=== PATIENT | male | born 1945 | race Caucasian/White ===

== ENCOUNTER 2021-01-12 06:34 | Day surgery (SDC) | payer OTHER, SELFPAY ==
[2020-12-29 11:49] VITALS: BMI 26.0
[2021-01-12] VITALS (7 sets, daily range): BP systolic 83–159; BP diastolic 37–82; PULSE 48–57; RESP 14–16; TEMP 36.1–36.8; O2SAT 94–99; BMI 25.3
--- NOTE | 2021-01-12 06:51 | HP.PCM_ITS ---
Problem List (1) Personal history of colonic polyps Status: Acute History and Physical Date of Admission: 01/12/21 Intake Visit Reasons: CSCOPE Chief Complaint: history of colon polyps Group Exercise Class Instructor Required: No Is patient in pain?: No Allergies adhesive tape Allergy (Mild, Verified 12/29/20 11:51) rash Sulfa (Sulfonamide Antibiotics) Adverse Reaction (Mild, Verified 12/29/20 11:51) tremors Medications aspirin 81 mg tablet,delayed release 81 mg PO DAILY 12/29/20 [History Confirmed 12/29/20] clopidogrel 75 mg tablet 75 mg PO .qod tab 12/29/20 [History Confirmed 12/29/20] isosorbide mononitrate 120 mg tablet,extended release 24 hr 120 mg PO DAILY 12/29/20 [History Confirmed 12/29/20] metoprolol tartrate 25 mg tablet 25 mg PO BID 12/29/20 [History Confirmed 12/29/20] valsartan 40 mg tablet 20 mg PO BID tab 12/29/20 [History Confirmed 12/29/20] [facility] Medical History (Updated 12/29/20 @ 12:[address] Derrick Tijerina MD) Personal history of colonic polyps (Acute) Osteoarthritis (Acute) Back pain (Acute) Gout (Acute) HTN (hypertension) (Chronic) Myocardial infarction (Acute) CAD (coronary artery disease) (Acute) Lupus (systemic lupus erythematosus) (Acute) Sleep apnea (Acute) GERD (gastroesophageal reflux disease) (Acute) Hemorrhoids (Acute) COPD (chronic obstructive pulmonary disease) (Chronic) Personal history of colonic polyps (Acute) Surgical History (Updated 12/29/20 @ 11:47 by Ramandeep Escobedo) History of colonoscopy (Acute ~2017) History of excision of mass (Acute) History of heart bypass surgery (Acute) History of laparoscopic cholecystectomy (Acute) History of lumbar fusion (Acute) Family History (Updated 12/29/20 @ 11:49 by Ramandeep Escobedo) Father Heart disease Hypertension Mother CVA (cerebral vascular accident) Social History (Updated 12/29/20 @ 15:[address] Derrick Tijerina MD) Smoking Status: Current every day smoker HPI HPI HPI: MAIK MCFARLAND, is a 75 M who presents to the office today for surgical consultation for colonoscopy because of a personal history of colon polyps. The patient is referred by the [facility] and a written copy my surgical consult recommendations were returned to them. Patient had a complicated history. Sounds like he has previously had his gallbladder removed. He was having abdominal pain. He claims that was not a correct diagnosis and he then had perforated sigmoid diverticulitis. Apparently had a resection but then had problems with a colovesical fistula. He had to have part of his urinary bladder removed and redo surgery and a diverting colostomy. All of that finding was t aken down and reestablish to normal. He has been a long-term cigarette smoker. A chest CT scan by his report is been done looking for nodules. He claims that he is stable. He also has a known infrarenal abdominal aortic aneurysm at 3.8 cm on most recent testing. He has a femoral-femoral crossover graft that is patent and in place. He walks 4 to 6 miles per day in 2 different settings. He currently denies chest pain or shortness of breath no bright red blood per rectum or melena. His most recent colonoscopy was May 28, 2017. Cecal lymphoid aggregate. 2 polyps of the ascending colon tubular adenomas. Transverse colon tubular adenoma. Rectal tubular adenoma. Diverticular disease of the descending colon. HPI HPI HPI: MAIK MCFARLAND, is a 75 M who presents to the office today for ROS General General: No weight change, appetite, fatigue, colon cancer, breast cancer or weakness HEENT HEENT: No difficulty swallowing, eye injury, eye surgery, swollen glands or hoarseness Endo Endocrine: No thyroid disease, diabetes mellitus, thyroid cancer, Hair loss, heat intolerance or cold intolerance Musc Musculoskeletal: Yes back problems, arthritis and gout; no rheumatoid arthritis or joint pain Cardio Cardiovascular: Yes murmur, heart disease, atrial fibrillation, high blood pressure and heart attack Psych Psychiatric: No depression, anxiety or hearing voices Resp Respiratory: Yes shortness of breath, Yes sleep apnea, No cough, Yes COPD, No asthma, No emphysema, No wheezing Gastro Gastrointestinal: No abdominal pain, No nausea or vomiting, No diarrhea, Yes constipation, No blood in stool, Yes acid reflux, Yes hemorrhoids, No ulcers, No gallbladder problem, No black,tarry stools Ken Hematologic: Yes blood thinners, No blood disorders, No bleeding, No anemia, No blood clots Neuro Neurologic: No weakness Exam Const General: cooperative Nutritional Appearance: average body habitus Orientation: alert, awake [facility] Head: normal to inspection Eyes General: appearance normal, both eyes and all related structures Resp Effort & Inspection: normal respiratory effort Auscultation: clear to auscultation bilaterally Cardio Rate: regular rate Rhythm: regular rhythm Heart Sounds: murmur GI Inspection: normal to inspection Palpation: soft Auscultation: normal bowel sounds Musc Cervical Spine: normal cervical lordosis Skin General: no rashes or lesions noted Neuro Cognition: normal cognition Extrem General: no calf tenderness Assessment & Plan Problems 1. Personal history of colonic polyps Z86.010 Plan I recommended the patient a colonoscopy with possible biopsy or polypectomy as indicated. He is aware of the technique, benefit, risk and alternatives. He is aware that he likely will have additional polyps present. He has the aortic aneurysm and femorofemoral crossover graft. He is on aspirin and Plavix for A. fib. He has COPD. With that in mind we will use monitored anesthesia care. Appreciate the opportunity of assisting with surgical care Copy: [facility]. Derrick Tijerina M.D., F.A.C.S. Orders Orders: Colonoscopy Today Coding Level of Care Code 79269 Diagnoses Personal history of colonic polyps Z86.010 I have re-examined the patient. There are no clinical changes since date of exam.
[2021-01-12] MEDS: Lactated Ringers 1,000 ML 100 ML IV (07:31)
--- NOTE | 2021-01-12 08:16 | OP.COLON_ITS ---
Patient Name: Javi De La Cruz Procedure Date: 01/12/2021 7:47 AM Date of : 1945 Age: 75 Procedure: Colonoscopy Indications: High risk colon cancer surveillance: Personal history of colonic polyps Providers: Derrick Tijerina MD Referring MD: Hiram Dean Medicines: See the Anesthesia note for documentation of the administered medications Patient Profile: Last Colonoscopy: date unknown. Complications: No immediate complications. Procedure: Pre-Anesthesia Assessment: - Prior to the procedure, a History and Physical was performed, and patient medications and allergies were reviewed. The patient's tolerance of previous anesthesia was also reviewed. The risks and benefits of the procedure and the sedation options and risks were discussed with the patient. All questions were answered, and informed consent was obtained. Prior Anticoagulants: The patient has taken no previous anticoagulant or antiplatelet agents. ASA Grade Assessment: III - A patient with severe systemic disease. After reviewing the risks and benefits, the patient was deemed in satisfactory condition to undergo the procedure. After I obtained informed consent, the scope was passed under direct vision. Throughout the procedure, the patient's blood pressure, pulse, and oxygen saturations were monitored continuously. The Colonoscope was introduced through the anus and advanced to the cecum, identified by appendiceal orifice and ileocecal valve. The colonoscopy was performed without difficulty. The patient tolerated the procedure well. The quality of the bowel preparation was good. The ileocecal valve and the appendiceal orifice were photographed. Scope In: 8:00:49 AM Scope Withdrawal Time 0 hours 7 minutes 16 seconds Scope Out: 8:10:29 AM Total Procedure Duration Time 0 hours 9 minutes 40 seconds Findings: Hemorrhoids were found on perianal exam. Multiple diverticula were found in the entire colon. The exam was otherwise without abnormality. Impression: - Hemorrhoids found on perianal exam. - Diverticulosis in the entire examined colon. - The examination was otherwise normal. - No specimens collected. Recommendation: - Discharge patient to home. - Resume previous diet. - Continue present medications. - Repeat colonoscopy in 5 years for surveillance. Procedure Code(s): --- Professional --- 38012, Colonoscopy, flexible; diagnostic, including collection of specimen(s) by brushing or washing, when performed (separate procedure) Diagnosis Code(s): --- Professional --- Z86.010, Personal history of colonic polyps K64.9, Unspecified hemorrhoids K57.30, Diverticulosis of large intestine without perforation or abscess without bleeding CPT copyright 2017 [employer]. All rights reserved. The codes documented in this report are preliminary and upon exchange floor manager review may be revised to meet current compliance requirements. Derrick Tijerina MD 01/12/2021 8:15:39 AM This report has been signed electronically. Number of Addenda: 0 Note Initiated On: 01/12/2021 7:47 AM
--- NOTE | 2021-01-12 08:16 | OP.CCLET_ITS ---
01/12/2021 Hiram Dean [address] [place] [address] [place] [address] Re : Colonoscopy procedure for Javi De La Cruz Dear Dr. Dean This procedure was performed on Tuesday, January 12, 2021. My impressions and recommendations are as follows: Impressions : - Hemorrhoids found on perianal exam. - Diverticulosis in the entire examined colon. - The examination was otherwise normal. - No specimens collected. Recommendations : - Discharge patient to home. - Resume previous diet. - Continue present medications. - Repeat colonoscopy in 5 years for surveillance. My findings are described in the full procedure note, which is enclosed. If I can be of further assistance, please feel free to contact me at Doctor phone number(s): Work: . Sincerely, Derrick Tijerina MD 01/12/2021 8:15:39 AM This report has been signed electronically.
== END 2021-01-12 08:55 | disposition home or self-care (01) ==
LOC: EN 06:35 → AC 06:35
PROVIDERS: PCP Family Medicine; Referring Provider Family Medicine; Visit Provider Surgery
PROC: 0DJD8ZZ Inspection of Lower Intestinal Tract, Via Natural or Artificial Opening Endoscopic (ICD-10-PCS; CPT 45378; principal; 2021-01-12 07:55)
DX: Z12.11 Encounter for screening for malignant neoplasm of colon (principal); K64.9 Unspecified hemorrhoids; K57.30 Diverticulosis of large intestine without perforation or abscess without bleeding; Z86.010 Personal history of colon polyps; K21.9 Gastro-esophageal reflux disease without esophagitis; I25.10 Atherosclerotic heart disease of native coronary artery without angina pectoris; I48.91 Unspecified atrial fibrillation; I25.2 Old myocardial infarction; I10 Essential (primary) hypertension; E78.00 Pure hypercholesterolemia, unspecified; J44.9 Chronic obstructive pulmonary disease, unspecified; M32.9 Systemic lupus erythematosus, unspecified; M19.90 Unspecified osteoarthritis, unspecified site; F32.9 Major depressive disorder, single episode, unspecified; F41.9 Anxiety disorder, unspecified; F17.210 Nicotine dependence, cigarettes, uncomplicated; Z95.1 Presence of aortocoronary bypass graft; Z79.82 Long term (current) use of aspirin; Z79.02 Long term (current) use of antithrombotics/antiplatelets; Z79.899 Other long term (current) drug therapy; Z86.73 Personal history of transient ischemic attack (TIA), and cerebral infarction without residual deficits
CPT/HCPCS: 45378; 87426; C9803; J7120; J2405

== ENCOUNTER 2022-03-10 09:25 | Emergency (ER) | payer OTHER, SELFPAY ==
[2022-03-10 09:29] VITALS: BP 114/91; PULSE 71; RESP 20; TEMP 37; O2SAT 97; BMI 20.5
--- NOTE | 2022-03-10 10:22 | CT_ITS ---
STUDY: CT ABDOMEN AND PELVIS WITH CONTRAST REASON FOR EXAM: Male, 76 years old. right sided abd pain -- IV PO Contrast RADIATION DOSAGE (If Supplied By Facility): CTDIvol = ( 8.82 ) mGy, DLP = ( 385.92 ) mGycm TECHNIQUE: Transaxial images were obtained from the dome of the diaphragm to the symphysis pubis without oral contrast. Oral and amp; IV Gastrografin and amp; 100mL Isovue-300 was administered. Sagittal and coronal images were reconstructed. Individualized dose optimization techniques were used for this CT. COMPARISON: None. FINDINGS: Left lower lobe chronic appearing nodule is present measuring 4 to 5 mm. The visualized portions of the heart are within normal limits. Mild intrahepatic ductal dilatation is present. Cholecystectomy clips are present. Normal spleen. Within the head of the pancreas are cystic appearing lesions not definitively connected with the pancreatic duct the largest measuring 2.8 x 1.8 cm. Normal bilateral adrenal glands. There is mild cortical atrophy of the right kidney, consistent with chronic medical renal disease. There is mild cortical atrophy of the left kidney, consistent with chronic medical renal disease. Normal visualized stomach. There is left quadrant dilated small bowel loops of bowel measuring up to 3.3 cm likely consistent with underlying component of ileus given contrast extending to the distal bowel. Within the region of the cecum is inflammatory stranding wall thickening concerning for underlying colitis. The appendix is not clearly visualized on examination. Infrarenal abdominal aortic aneurysm is present measuring 3.5 cm with lack of contrast to the iliac arteries, however bilateral femoral bypass graft is noted and patent. Normal inferior vena cava. Normal retroperitoneum. Normal urinary bladder. Prostate is enlarged abutting the bladder base. Normal abdominal wall. Diffuse demineralization and degenerative changes are present. CT/Abdomen/Pelvis WITH Contrast IMPRESSION: 1. Wall thickening and inflammatory stranding within the region of the cecum concerning for underlying colitis. The appendix is not clearly visualized due to surrounding inflammatory stranding. No evidence of focal abscess. Recommend follow-up imaging after appropriate treatment to document resolution as wall thickening due to neoplastic processes not excluded. 2. Cystic lesions within the head of the pancreas of unclear definitive etiology. Recommend MR pancreatic and MRCP imaging for further assessment characterization. 3. Left quadrant dilated small bowel loops of bowel likely representing underlying ileus with contrast demonstrated distally within the ball small bowel system. 4. Adequate flow within the femoral arterial bypass graft. Electronically Signed: Alli Reyes DO at 12:27 EDT ,
[2022-03-10 10:52] LABS: Absolute Lymphocyte Count 0.66 X10^3/uL (0.83-4.51); Absolute Neutrophil Count 6.7 X10^3/uL (2.0-7.7); Basophil# 0.02 X10^3/uL; Basophil% 0.2 % (0-1); Eosinophil# 0.03 X10^3/uL; Eosinophils% 0.4 % (0-5); Hemoglobin 10.5 g/dL (13.0-16.5); Lymphocyte # 0.66 X10^3/ul (0.83-4.51); Lymphocyte % 7.7 % (19-41); Mean Corp Hgb Conc 33.9 g/dL (32-36); Mean Corpuscular Hgb 33.3 pg (27.0-32.0); Mean Corpuscular Volume 98.4 fL (80-94); Mean Platelet Vol. 10.5 fl (6.2-12.0); Monocyte# 1.03 X10^3/uL; Monocyte% 12.1 % (0-10); NRBC Flagged by Analyzer 0 % (0-5); Neutrophil # 6.73 X10^3/uL (2.7-7.7); Neutrophil % 78.9 % (47-70); Platelet Count 195 K/mm3 (150-450); RBC Distribution Width CV 12.7 % (11.6-14.6); RBC Distribution Width SD 45.8 fl (35.1-43.9); Red Blood Count 3.15 M/mm3 (4.6-6.2); White Blood Count 8.5 K/mm3 (4.4-11.0)
[2022-03-10] MEDS: 0.9% Normal Saline 1,000 ML 200 ML IV (11:03)
[2022-03-10] MEDS: Ondansetron 4 MG/2 ML Vial IV (11:03)
[2022-03-10] MEDS: Morphine 4 MG/ML Syringe IV (11:03)
--- NOTE | 2022-03-10 11:07 | EDS_ITS ---
HPI HPI - GI History of Present Illness Chief Complaint: Abd Pain Informant: patient Abdominal Pain/Flank Pain Onset: Weeks (about 7 total; worse in past week) Context: Sudden Onset (after a fall onto his left hip) Timing: Continuous Quality: Aching Location: RUQ and RLQ Current Severity: Severe Maximum Severity: Severe Worsened by: Nothing Relieved by: Nothing Nausea/Vomiting/Emesis GI Symptom: Negative for Nausea and Vomiting Diarrhea/Melena/Hematochezia GI Symptom: Positive for - (Last bowel movement for 5 days ago which is unusual, usually goes daily); Negative for Diarrhea, Melena and Hematochezia Associated Symptoms Associated Symptoms: Positive for - (Some trouble emptying bladder lately); Negative for Dysuria, Frequency and Hematuria Narrative Narrative: Patient states he has been having abdominal pain ever since the beginning of January, when he had an accidental fall onto his left hip and his abdominal contents/back and forth. He states this is the first time he has had it checked out since the pain is really been worse in the past week. He had a normal bowel movement for 5 days ago, and since then he has had a few mikhail that were hard but no bowel movement otherwise. He denies any blood or melena. No nausea or vomiting but today he has no appetite and the pain is worse so he came to have evaluation. He has had several prior surgeries including a cholecystectomy, and he states he had a perforated viscus that given peritonitis which resulted in several surgeries and he was told that his appendix was wrapped in bowel at that time. [facility] Medical History Back pain CAD (coronary artery disease) COPD (chronic obstructive pulmonary disease) GERD (gastroesophageal reflux disease) Gout Hemorrhoids HTN (hypertension) Lupus (systemic lupus erythematosus) Myocardial infarction Osteoarthritis Personal history of colonic polyps Personal history of colonic polyps Sleep apnea Home Medications aspirin 81 mg tablet,delayed release 81 mg PO DAILY 12/29/20 [History Last Taken Unknown] clopidogrel 75 mg tablet 75 mg PO .qod tab 12/29/20 [History Last Taken Unknown] isosorbide mononitrate 120 mg tablet,extended release 24 hr 120 mg PO DAILY 12/29/20 [History Last Taken Unknown] metoprolol tartrate 25 mg tablet 25 mg PO BID 12/29/20 [History Last Taken Unknown] valsartan 40 mg tablet 20 mg PO BID tab 12/29/20 [History Last Taken Unknown] albuterol sulfate 0.63 mg IH BID 01/04/21 [History Last Taken Unknown] cholecalciferol (vitamin D3) 1,000 unit PO DAILY 01/04/21 [History Last Taken Unknown] guaifenesin 400 mg PO BID 01/04/21 [History Last Taken Unknown] mecobalamin (vitamin B12) 1,000 mcg PO DAILY 01/04/21 [History Last Taken Unknown] nitroglycerin 1 tab SL TID 01/04/21 [History Last Taken Unknown] omeprazole 20 mg PO BID 01/04/21 [History Last Taken Unknown] trazodone 50 mg PO QHS PRN 01/04/21 [History Last Taken Unknown] ciprofloxacin HCl 500 mg PO BID #14 tablet 03/10/22 [Rx Last Taken Unknown] metronidazole 500 mg PO BID #14 tab 03/10/22 [Rx Last Taken Unknown] prednisone 20 mg PO DAILY #6 tablet 03/10/22 [Rx Last Taken Unknown] terazosin 10 mg PO BID 03/10/22 [History Last Taken Unknown] Allergy/AdvReac Type Severity Reaction Status Date / Time adhesive tape Allergy Mild rash Verified 01/12/21 07:02 Sulfa (Sulfonamide AdvReac Mild tremors Verified 01/12/21 07:02 Antibiotics) Family History (Updated 12/29/20 @ 11:49 by Ramandeep Escobedo) Father Heart disease Hypertension Mother CVA (cerebral vascular accident) Surgical History (Updated 01/12/21 @ 06:[address] Derrick Tijerina MD) History of colonoscopy (~2017) History of excision of mass History of heart bypass surgery History of laparoscopic cholecystectomy History of lumbar fusion Social History Smoking Status: Current every day smoker tobacco type: cigarettes ROS ROS ED Constitutional Constitutional ED: Denies chills or fever(s) Eyes Eyes: Denies change in vision or diplopia ENT ENT ED: Denies rhinorrhea or sore throat Cardiovascular Cardiovascular: Denies chest pain or palpitations Respiratory/Chest Respiratory/Chest: Denies cough or dyspnea Gastrointestinal Gastrointestinal: Reports as per HPI, abdominal pain and constipation; Denies diarrhea, nausea or vomiting Genitourinary Genitourinary ED: Denies dysuria or hematuria Musculoskeletal Musculoskeletal: Denies back pain or neck pain Integumentary Denies abscess or rash Neurologic Neurologic: Denies headache(s), paresthesias or weakness Psychiatric Psychiatric: Denies anxiety or suicidal thoughts EXAM Physical Exam Const Vital Signs: 03/10/22 09:29 03/10/22 11:44 Temperature 98.6 F 97.6 F L Temperature Source Oral Oral Pulse Rate 71 63 Respiratory Rate 20 H 18 Blood Pressure 114/91 H 162/92 H Blood Pressure Mean 98 115 Pulse Ox 97 Oxygen Delivery Method Room Air Room Air Positive well nourished and well developed General Appearance ED: well developed and NAD HEENT Reports moist mucous membranes normocephalic and atraumatic Eyes PERRL and EOMs intact bilaterally Neck full ROM and supple Resp normal respiratory effort and clear to auscultation bilaterally Cardio regular rate, regular rhythm and no murmurs GI non-distended GI Narrative: Very tender throughout right side of abdomen. No guarding or rebound tenderness. No distention. Nontender throughout the left side. Auscultation: normoactive bowel sounds Palpation: soft Back/Spine no CVA tenderness General Back: other FROM Extremity normal to inspection General Extremety ED: Negative for edema, pulses abnormal or tenderness General Extremity: Negative for edema or pulses abnormal Neuro oriented x3, CN's II-XII intact bilaterally and no sensory deficits noted Sensorium / Orientation: awake and alert Motor Exam: strength 5/5 throughout Skin no rashes or lesions noted and no wounds MDM MDM MDM Narrative Medical decision making narrative: Perform CT with IV and p.o. contrast. Results are noted as below, showing significant colitis around the cecum without any obvious evidence of an abscess or appendicitis. No free air to suggest a ruptured viscus. This pain has been present for almost 2 months. He is constipated last 5 days but that does not sound like the etiology of the pain. He states he had some laxative at home and he will consider doing that and does not necessarily want a thing here which I think is fine. His lipase is nonsp ecifically elevated, there were some cystic abnormalities on the CT of the pancreas, MR recommended to reevaluate these I can be done as an outpatient. He does not have acute pancreatitis clinically. His white blood count is not elevated. I do not think he needs to see a surgeon right now, but I discussed with Dr. Cordoba with GI, who recommends the patient follow-up closely with him, recommends a 1 week course of Cipro and Flagyl in addition to Solu-Medrol 40 mg followed by 20 mg daily for the next week. I will give him 6 days worth of the pills in order to total 7 days of steroids so he does not have to taper them. I suspect this will help the inflammation and pain, which was treated here. He is stable for discharge home and agrees to follow-up. Lab Data Attestation: I reviewed the patient's lab results. Labs: Laboratory Results - last 24 hr 03/10/22 03/10/22 03/10/22 10:40 10:40 10:45 WBC 8.5 RBC 3.15 L Hgb 10.5 L Hct 31.0 L MCV 98.4 H MCH 33.3 H MCHC 33.9 RDW Std Deviation 45.8 H RDW Coeff of Nova 12.7 Plt Count 195 MPV 10.5 Immature Gran % (Auto) 0.700 Neut % (Auto) 78.9 H Lymph % (Auto) 7.7 L [place] % (Auto) 12.1 H Eos % (Auto) 0.4 Baso % (Auto) 0.2 Absolute Neuts (auto) 6.7 Absolute Lymphs (auto) 0.66 L Nucleated RBC % 0 Sodium 133 L Potassium 3.4 L Chloride 99 Carbon Dioxide 27.0 Anion Gap 7 BUN 11 Creatinine 0.75 Estim Creat Clear Calc 56.13 Est GFR (MDRD) Af Amer 130 Est GFR (MDRD) Non-Af 108 BUN/Creatinine Ratio 14.6 Glucose 108 H Calcium 8.4 L Total Bilirubin 0.90 AST 11 L ALT 11 L Alkaline Phosphatase 72 Total Protein 6.4 Albumin 2.5 L Globulin 3.9 Albumin/Globulin Ratio 0.6 L Lipase 552 H Urine Color Yellow Urine Clarity Clear Urine pH 8.0 Ur Specific [place] 1.010 Urine Protein 15 H Urine Glucose (UA) Normal Urine Ketones Negative Urine Occult Blood Negative Urine Nitrite Negative Urine Bilirubin Negative Urine Urobilinogen 4 H Ur Leukocyte Esterase Negative Urine RBC 0 SEEN Urine WBC 0 SEEN Ur Squamous Epith Cells 0 SEEN Urine Bacteria 0 SEEN Urine Mucus 0 SEEN Radiography Diagnostic Testing: Clinical Impression(s) from Imaging Studies Abdomen/Pelvis CT 03/10/22 10:22 IMPRESSION: 1. Wall thickening and inflammatory stranding within the region of the cecum concerning for underlying colitis. The appendix is not clearly visualized due to surrounding inflammatory stranding. No evidence of focal abscess. Recommend follow-up imaging after appropriate treatment to document resolution as wall thickening due to neoplastic processes not excluded. 2. Cystic lesions within the head of the pancreas of unclear definitive etiology. Recommend MR pancreatic and MRCP imaging for further assessment characterization. 3. Left quadrant dilated small bowel loops of bowel likely representing underlying ileus with contrast demonstrated distally within the ball small bowel system. 4. Adequate flow within the femoral arterial bypass graft. Electronically Signed: Alli Reyes DO at 12:27 EDT , Discharge Plan Triage Chief Complaint: Abd Pain ED Provider: Walter Rosa Dx/Rx/DC Orders Clinical Impression: Colitis, Right sided abdominal pain Instructions: Abdominal Pain, Colitis Ulcerative Dc Prescriptions: New metronidazole [metronidazole] 500 MG tablet 500 mg PO BID Qty: 14 RF: 0 ciprofloxacin HCl [ciprofloxacin HCl] 500 MG tablet 500 mg PO BID Qty: 14 RF: 0 prednisone 20 MG tablet 20 mg PO DAILY Qty: 6 RF: 0 No Action isosorbide mononitrate 120 mg tablet extended release 24 hr 120 mg PO DAILY RF: 0 aspirin 81 mg tablet,delayed release (DR/EC) 81 mg PO DAILY RF: 0 metoprolol tartrate 25 mg tablet 25 mg PO BID RF: 0 valsartan 40 mg tablet 20 mg PO BID RF: 0 clopidogrel [Plavix] 75 mg tablet 75 mg PO .qod RF: 0 albuterol sulfate 0.63 MG/3 ML solution for nebulization 0.63 mg IH BID RF: 0 trazodone 50 MG tablet 50 mg PO QHS PRN (Reason: Insomnia) RF: 0 nitroglycerin 0.3 MG tablet, sublingual 1 tab SL TID RF: 0 omeprazole 20 MG capsule 20 mg PO BID RF: 0 guaifenesin 400 MG tablet 400 mg PO BID RF: 0 cholecalciferol (vitamin D3) 50 MCG capsule 1,000 unit PO DAILY RF: 0 mecobalamin (vitamin B12) 1,000 MCG tablet,chewable 1,000 mcg PO DAILY RF: 0 terazosin 10 mg Capsule 10 mg PO BID RF: 0 Primary Care Provider: Hiram Dean Referrals: Hiram Dean MD [Primary Care Provider] - Friend,DO George [STAFF PHYSICIAN] - As soon as possible (call for appt) Disposition Disposition: Home, Self Care
[2022-03-10 11:11] LABS: ALB/GLOB Ratio 0.6 RATIO (0.9-2.4); AST(SGOT) 11 U/L (15-37); Alanine Aminotransfer ALT/SGPT 11 U/L (16-61); Albumin, Serum 2.5 g/dL (3.2-5.0); Alkaline Phosphatase 72 U/L (45-117); Anion Gap 7 (5-15); BUN 11 mg/dL (7-18); BUN/Creat Ratio 14.6 RATIO (10-20); Calcium,Total 8.4 mg/dL (8.5-10.1); Chloride 99 mmol/L (98-107); Creatinine, Serum 0.75 mg/dL (0.70-1.30); EST Glomerular Filtration Rate 108 mL/min (>60); Est Glom Filt Rate - Afr Amer 130 mL/min (>60); Estimated Creatinine Clearance 56.13 ml/min; Globulin 3.9 g/dL (2.2-4.2); Glucose 108 mg/dL (74-106); Lipase 552 U/L (73-393); Potassium 3.4 mmol/L (3.5-5.1); Protein, Total 6.4 g/dL (6.4-8.2); Sodium Level 133 mmol/L (136-145)
[2022-03-10 11:44] VITALS: BP 162/92; PULSE 63; RESP 18; TEMP 36.4
[2022-03-10 12:01] LABS: Bacteria 0 SEEN /hpf (None Seen); Mucous, Urine 0 SEEN /hpf (<or=2+); Red Blood Cells-Urine 0 SEEN /hpf (0-5); Squamous Epithelial Cells - UA 0 SEEN /hpf (0-5); White Blood Cells 0 SEEN /hpf (0-5)
[2022-03-10 12:02] LABS: Color, Urine Yellow (Yellow); Glucose, Dipstick Normal (Normal); Ketone-Dipstick Negative (Negative); Leukocyte Esterase-Dipstick Negative /ul (Negative); Nitrite-Dipstick Negative (Negative); Occult Blood-Urine Negative /ul (Negative); Protein-Dipstick 15 mg/dl (Negative); Urine Bilirubin Dipstick Negative (Negative); Urine Clarity Clear (Clear); Urine Urobilinogen 4 mg/dl (Normal)
[2022-03-10 13:54] VITALS: PULSE 84; RESP 16; O2SAT 97
== END 2022-03-10 13:55 | disposition home or self-care (01) ==
PROVIDERS: Emergency Provider Emergency Medicine; PCP Family Medicine; Visit Provider Emergency Medicine
DX: K52.9 Noninfective gastroenteritis and colitis, unspecified (principal); J44.9 Chronic obstructive pulmonary disease, unspecified; I25.10 Atherosclerotic heart disease of native coronary artery without angina pectoris; I10 Essential (primary) hypertension; I25.2 Old myocardial infarction; K21.9 Gastro-esophageal reflux disease without esophagitis; F17.210 Nicotine dependence, cigarettes, uncomplicated; Z95.1 Presence of aortocoronary bypass graft; Z79.02 Long term (current) use of antithrombotics/antiplatelets; Z79.82 Long term (current) use of aspirin; Z79.899 Other long term (current) drug therapy
CPT/HCPCS: 74177; 80053; 81001; 83690; 85025; 96361; 96374; 96375; 99283; J7030; Q9967; A4216; J2405